=== PATIENT | male | born 1995 | race Caucasian/White ===

== ENCOUNTER 2023-02-09 15:21 | Outpatient (CLI) | payer OTHER, SELFPAY | END 2023-02-09 15:22 | disposition home or self-care (01) | PROVIDERS: PCP Family Medicine; Visit Provider Family Medicine | DX: Z00.00 Encounter for general adult medical examination without abnormal findings (principal); Z13.6 Encounter for screening for cardiovascular disorders; Z13.1 Encounter for screening for diabetes mellitus | CPT/HCPCS: 80053; 80061 ==

== ENCOUNTER 2023-02-14 10:01 | Outpatient (CLI) | payer OTHER, SELFPAY | END 2023-02-14 10:02 | disposition home or self-care (01) | LOC: FRMREF 10:01 | PROVIDERS: PCP Family Medicine; Visit Provider Family Medicine | DX: E78.1 Pure hyperglyceridemia (principal); F32.A Depression, unspecified | CPT/HCPCS: 80061; 84443 ==

== ENCOUNTER 2024-04-11 08:18 | Outpatient (CLI) | payer OTHER, SELFPAY | END 2024-04-11 08:19 | disposition home or self-care (01) | LOC: NFLDREF 04-12 10:05 | PROVIDERS: PCP Family Medicine; Referring Provider Family Medicine; Visit Provider Family Medicine | DX: E78.1 Pure hyperglyceridemia (principal) | CPT/HCPCS: 80061 ==